=== PATIENT | male | born 1955 | race Caucasian/White ===

== ENCOUNTER 2021-01-04 15:45 | Emergency (ER) | payer OTHER, SELFPAY ==
[2021-01-04] MEDS ORDERED: Cephalexin 250 MG CAP ONE (16:03)
[2021-01-04] MEDS ORDERED: Boostrix 0.5 ML (Tdap) VIAL ONE (16:03)
[2021-01-04] MEDS ORDERED: Lidocaine 1% w/Epinephrine 1:100K 20 ML VIAL ONE (16:12)
== END 2021-01-04 17:15 | disposition home or self-care (01) ==
LOC: BURERS 15:45
DX: S01.81XA Laceration without foreign body of other part of head, initial encounter (principal); S21.112A Laceration without foreign body of left front wall of thorax without penetration into thoracic cavity, initial encounter; S61.412A Laceration without foreign body of left hand, initial encounter; W22.8XXA Striking against or struck by other objects, initial encounter
CPT/HCPCS: 12002; 12013; 70360; 71046; 90715